=== PATIENT | female | born 1970 | race American Indian/Alaskan Native ===

== ENCOUNTER 2020-07-11 11:26 | Emergency (ER) | payer OTHER, SELFPAY ==
--- NOTE | 2020-07-11 11:29 | ED.EAR ---
HPI - Ear Problem General Chief complaint: Ear Stated complaint: ear pain/jaw pain Time Seen by Provider: 07/11/20 11:29 Source: patient and RN notes reviewed History of Present Illness HPI Narrative: Now with Lena Sen patient is a 50-year-old female who presents the urgent care with complaints of bilateral ear pain, worse on the right radiating to the jaw. Patient states that it started on Wednesday and she has been taking ibuprofen for the pain. Patient states that she chronically uses allergy medications and Flonase for chronic persistent sinusitis. Patient also reports of sinus pressure and pain. States that she does a lot of swimming and may need a eardrop . Denies of any fever, nausea, vomiting. No other acute complaints. No acute distress noted. Patient read the plan of care. Related Data Home Medications Medication Instructions Recorded Confirmed albuterol sulfate INHALATION 07/11/20 amitriptyline 07/11/20 amitriptyline 07/11/20 atorvastatin 07/11/20 cetirizine mg 07/11/20 escitalopram oxalate mg 07/11/20 fluticasone propion-salmeterol INHALATION 07/11/20 [Wixela Inhub] montelukast mg 07/11/20 omeprazole 07/11/20 promethazine 07/11/20 sumatriptan succinate mg PO 07/11/20 Allergies Allergy/AdvReac Type Severity Reaction Status Date / Time No Known Allergies Allergy Verified 07/11/20 11:33 Review of Systems Review of Systems: Narrative: CONSTITUTIONAL: Denies fever, chills, or sweats. EYES: Denies visual changes, redness, or discharge. ENT: Reports of bilateral otalgia, sinus pressure and postnasal drainage CARDIOVASCULAR: Denies chest pain, palpitations, or edema. RESPIRATORY: Denies cough or dyspnea. GASTROINTESTINAL: Denies abdominal pain, nausea, vomiting, or diarrhea. GENITOURINARY: Denies dysuria or hematuria. SKIN: Denies rash or itching. MUSCULOSKELETAL: Denies back pain, joint pain, or myalgia. NEUROLOGIC: Denies headache, numbness, or weakness. All other systems reviewed are negative, except as documented in HPI. [facility] Past Medical History Medical History (Updated 07/11/20 @ 12:00 by MARGARETH Mendoza) Acid reflux Amputation of leg below knee, traumatic Asthma Elevated lipids Neurofibromatosis Pseudoarthrosis Vaginal delivery x 3 Surgical History Surgical History (Updated 11/20/19 @ 12:42 by Anali Cuevas [facility]) History of carpal tunnel surgery History of tubal ligation Previous section Social History Social History Smoking status: Light tobacco smoker Alcohol intake: current Comments At the time of my signature, I reviewed and agree with the nursing past medical, surgical, social, and family history. There is no relevant family history pertinent to the patient complaint. Exam Narrative: Exam Narrative: GENERAL: This is a well-nourished, well-developed patient, in no apparent distress. HEAD: normocephalic, atraumatic. Mild frontal sinus tenderness EYES: PERRL. Sclera clear/white. Vision is grossly intact. EARS: External ears normal, auditory canals clear and without drainage, mild fluid noted behind bilateral TMs without otitis externa/media, TMs normal without perforation. Hearing grossly intact. NOSE: External nose normal with no obvious nasal discharge, nares without redness, no rhinorrhea. THROAT: Mucous membranes moist, posterior pharynx clear. Mild postnasal drainage NECK: Neck suppl SKIN: warm, intact with no suspicious lesions or rash, good texture and turgor. NEURO: awake, alert, and oriented to person, place and time. There were no obvious focal neurologic abnormalities. EXTREMITIES: No clubbing, cyanosis, or edema. Course Vital Signs Vital signs: Vital Signs Temperature 97.0 F L 07/11/20 11:32 Pulse Rate 70 07/11/20 11:32 Respiratory Rate 12 07/11/20 11:32 Blood Pressure 134/79 07/11/20 11:32 Pulse Oximetry 100 07/11/20 11:32 Temperature 97.0 F L 07/11/20 11:32 Pulse Rate 70 07/11/20
[2020-07-11 11:32] VITALS: BP 134/79; PULSE 70; RESP 12; TEMP 36.1; O2SAT 100
== END 2020-07-11 12:10 | disposition home or self-care (01) ==
PROVIDERS: Emergency Provider Nurse Practitioner Family; PCP Family Medicine
DX: J32.9 Chronic sinusitis, unspecified (principal); Z89.519 Acquired absence of unspecified leg below knee
CPT/HCPCS: 99203; G0463

== ENCOUNTER 2024-09-18 14:43 | Outpatient (CLI) | payer OTHER, SELFPAY ==
--- NOTE | ~2024-09-18 | XR_ITS ---
3 VIEWS LUMBAR SPINE Ordering provider: Lubna Trejo, [employer] History: . LEFT LOW BACK PAIN X7 MNTHS NO INJURY . Comparison: None. FINDINGS: VERTEBRAL BODIES:Anterolisthesis of the 1st to 2nd degree is noted at the level of L5-S1. Spondylolys is at the same level is also noted. No visible fracture or subluxation. DISK SPACES: Severe narrowing of the disc L5-S1 is seen. Left sacroiliitis is noted. Pubic symphysiti s is also noted. SOFT TISSUES: Normal. IMPRESSION: No acute osseous abnormality lumbar spine. Spondylolisthesis at the level of L5-S1 with spondylolysis and degenerative disc disease. Left sacroiliitis. Pubic symphysitis. Reviewed, dictated and finalized at location A. [employer] IMPRESSION: No acute osseous abnormality lumbar spine. Spondylolisthesis at the level of L5-S1 with spondylolysis and degenerative dis c disease. Left sacroiliitis. Pubic symphysitis.
== END 2024-09-18 14:44 | disposition home or self-care (01) ==
DX: M43.17 Spondylolisthesis, lumbosacral region (principal); M51.370 Other intervertebral disc degeneration, lumbosacral region with discogenic back pain only; M46.1 Sacroiliitis, not elsewhere classified; M89.8X8 Other specified disorders of bone, other site
CPT/HCPCS: 72100